=== PATIENT | male | born 1950 | race Caucasian/White ===

== ENCOUNTER 2019-04-11 12:44 | Outpatient (CLI) | payer MEDICARE ==
--- NOTE | 2019-04-11 13:43 | MRI ---
MRI CERVICAL SPINE WITHOUT CONTRAST: HISTORY: Cervical radiculopathy. Bilateral hand and foot numbness. Symptoms worsening over the last 2 weeks. COMPARISON: 02/08/2015. FINDINGS: Appropriate T1 marrow signal intensity of the cervical vertebrae. Cervical spine vertebral body heigh t is maintained. No fracture. Straightening of normal cervical lordosis may be positional. No significant STIR hyperintensity to suggest vertebral body edema or ligamentous injury. Spondylolisthesis: 1.8 mm of anterolisthesis of C3 upon C4. 1.5 mm of anterolisthesis of C4 upon C5. 1.2 mm of retrolisthesis of C5 upon C6. Visualized brain parenchyma, cervicomedullary junction, cervical cord and the upper thoracic cord hav e a normal size and signal intensity. C2-C3: No significant central canal stenosis. Right neural foramen is patent. Mild to moderate left f oraminal narrowing due to uncovertebral and facet hypertrophy. C3-C4: Broad-based disc osteophyte complex with a central disc protrusion. Subarachnoid space is main tained. Mild central canal stenosis. Right neural foramen is patent. Moderate left foraminal narrowing due to uncovertebral and facet hypertrophy. C4-C5: Broad-based disc osteophyte complex with a central component. Subarachnoid space is maintained . Mild central canal stenosis. Right neural foramen is patent. Mild to moderate left foraminal narrowing due to uncovertebral and facet hypertrophy. C5-C6: Broad-based disc osteophyte complex abuts the thecal sac. Mild central canal stenosis. Mild ri ght foraminal narrowing due to uncovertebral hypertrophy. Left neural foramen is patent. C6-C7: No obvious disc osteophyte complex abuts the thecal sac. Mild central canal stenosis. Bilatera lly, neural foramina are patent. C7-T1: No significant central canal stenosis or significant neural foraminal narrowing. T1-T2: No significant central canal stenosis or significant neural foraminal narrowing. T2-T3: Broad-based disc bulge abuts the thecal sac. No significant central canal stenosis or signific ant neural foraminal narrowing. IMPRESSION: Degenerative changes of the cervical spine as detailed above. Transcribed Date/Time: 04/11/2019 2:07 PM
== END 2019-04-11 12:45 | disposition home or self-care (01) ==
LOC: TBSIIMAG 12:44
PROVIDERS: ATTEND Internal Medicine
DX: M47.22 Other spondylosis with radiculopathy, cervical region (principal)
CPT/HCPCS: 72141

== ENCOUNTER 2019-05-30 12:00 | Outpatient (CLI) | payer MEDICARE ==
--- NOTE | 2019-05-30 12:32 | RAD ---
Cervical spine 4 views flexion and extension HISTORY: Neck pain. FINDINGS: Mild reversal of the normal lordotic curvature. Vertebral body heights are maintained. Oste ophytosis most pronounced at the C5-6 and C6-7 levels. No abnormal translational motion upon flexion or extension. Cervicothoracic junction is intact. IMPRESSION: Osseous degenerative changes of the cervical spine. No acute osseous abnormalities are de monstrated.
== END 2019-05-30 12:01 | disposition home or self-care (01) ==
LOC: RAD 12:00
PROVIDERS: ATTEND Nurse Practitioner Family
DX: M43.12 Spondylolisthesis, cervical region (principal); M47.812 Spondylosis without myelopathy or radiculopathy, cervical region
CPT/HCPCS: 72040